=== PATIENT | male | born 1940 | race Caucasian/White ===

== ENCOUNTER → 2020-10-09 | Outpatient (CLI) | payer MEDICARE ==
[2016-04-08 11:20] VITALS: BP 145/66
[~2020-10-09] MED LIST: ALLO300T PO; ASPI81TA50 PO; DICL75TA PO; HYDR12.58 PO; LISI-130 PO; METO-239 PO; PROP225T2 PO; RIVA20TA2 PO; TRAM50TA PO
--- NOTE | 2020-10-09 12:08 | RAD ---
MR#: [id number] Date of Study: 10/09/2020 Ordering Physician: LAILA AVILA, Referring Physician: LAILA AVILA, Tech: Kelly Lanier RDMS, RVT, RTR APPROVED REPORT Patient Location : OUT-PATIENT Indications Lower Extremity Edema : Bilateral Varicose Veins Venous Insufficiency Greater Saphenous Veins (GSV) Significant venous relux noted in the RIGHT GSV at the following levels : Superficial Femoral Junctio n, Proximal Thigh, Mid Thigh, Distal Thigh, Proximal Calf, Mid Calf, Distal Calf Significant venous relux noted in the LEFT GSV at the following levels : Superficial Femoral Junction , Proximal Thigh, Mid Thigh, Distal Thigh, Proximal Calf, Mid Calf Findings Limited grayscale images of the bilateral saphenofemoral junctions did not reveal any obvious evidenc e of thrombus. The right great saphenous vein measures 6 mm with a maximum reflux time of 3 seconds. The left great saphenous vein measures 4.5 mm with a maximum reflux time of 2.3 seconds. The bilat eral lesser saphenous veins did not reveal any evidence of reflux. On the left side the great saphen ous vein appears to rapidly tapered to a small caliber vessel below the knee. Critical Notification Critical Value: No <Conclusion> 1. Positive for reflux in the bilateral greater saphenous veins Signed by : Jerman Carson, Electronically Approved : 10/09/2020 12:08:12
== END ==
LOC: US 08:01
PROVIDERS: ATTEND Internal Medicine Cardiovascular Disease
DX: I87.2 Venous insufficiency (chronic) (peripheral) (principal); R22.43 Localized swelling, mass and lump, lower limb, bilateral
CPT/HCPCS: 93970

== ENCOUNTER → 2020-12-26 | Outpatient (CLI) | payer MEDICARE ==
[2016-04-08 11:20] VITALS: BP 145/66
--- NOTE | 2020-12-26 11:09 | RAD ---
MR#: [id number] Date of Study: 12/26/2020 Ordering Physician: LAILA AVILA, Referring Physician: LAILA AVILA, Tech: Wilbur Palomo MBA, RDMS, RVT, RDCS, RTR APPROVED REPORT Bilateral Lower Extremity Venous Study for DVT Patient Location: OUT-PATIENT Indications S/P B/L GSV VENSEALS Vein Imaging (Right) CFV (R): Compressible SFJ (R): Compressible FEM (R): Compressible POP (R): Compressible DFV (R): Compressible PTV (R): Spontaneous GSV (R): Absent Flow Peroneals (R): Spontaneous Vein Imaging (Left) CFV (L): Compressible SFJ (L): Compressible FEM (L): Compressible POP (L): Compressible DFV (L): Compressible PTV (L): Spontaneous GSV (L): Absent Flow Peroneals (L): Spontaneous Doppler Evaluation (Right) CFV (R): Spontaneous POP (R):Spontaneous Doppler Evaluation (Left) CFV (L):Spontaneous POP (L):Spontaneous Findings The bilateral lower extremity deep veins were evaluated for thrombus with color Doppler, spectral and grayscale images. On the right the grayscale images of the common femoral, superficial femoral and popliteal veins do n ot demonstrate any evidence of thrombus and these veins appear to be compressible. The below-knee vei ns were not well visualized but grossly appear to be compressible. Spectral imaging and color Doppler do not reveal any evidence of obstruction to flow with normal respirophasic variation above the knee . Below the knee there is spontaneous flow noted. On the left, the grayscale images of the common femoral, superficial femoral and popliteal veins do n ot demonstrate any evidence of thrombus and these veins appear to be compressible. The below-knee vei ns again were not well visualized but grossly appear to be compressible. Spectral imaging and color D oppler do not reveal any evidence of obstruction to flow with normal respirophasic variation above th e knee. The below-knee veins demonstrate spontaneous flow. Critical Notification Critical Value: No <Conclusion> 1. Bilateral successful GSV ablations 2. Negative for DVT in the bilateral lower extremities. Signed by : Jerman Carson, Electronically Approved : 12/26/2020 11:08:24
== END ==
LOC: US 10:39
PROVIDERS: ATTEND Internal Medicine Cardiovascular Disease
DX: I82.403 Acute embolism and thrombosis of unspecified deep veins of lower extremity, bilateral (principal); I87.2 Venous insufficiency (chronic) (peripheral)
CPT/HCPCS: 93970

== ENCOUNTER 2021-05-10 09:35 | Observation (INO) | payer MEDICARE ==
[2021-05-10] VITALS (12 sets, daily range): BP systolic 120–166; BP diastolic 61–84
[~2021-05-10] VITALS: Ht 182.9 cm; Wt 88.0 kg
[2021-05-10] MEDS ORDERED: ceFAZolin SODIUM 1 GM in IV NORMAL SALINE 100ML 100 ML IRR ONE (09:45)
[2021-05-10 10:04] LABS: HEMATOCRIT 37.8 % (39.0-53.0); HEMOGLOBIN 12.1 g/dL (13.0-17.5); RED BLOOD COUNT 4.15 x10^6/uL (4.30-5.70); RED CELL DISTRIBUTION WIDTH 14.2 % (11.5-14.5); WHITE BLOOD COUNT 6.7 x10^3/uL (4.0-11.0)
[2021-05-10 10:15] LABS: PROTHROMBIN TIME PATIENT 13.7 SEC (11.7-14.0)
[2021-05-10 10:17] LABS: CALCIUM 8.7 mg/dL (8.5-10.1); CREATININE 1.3 mg/dL (0.7-1.3); GFR 53.1
[2021-05-10] MEDS ORDERED: OMEP40CA7 PO (10:41)
[2021-05-10] MEDS ORDERED: MULT-245 PO (10:41)
[2021-05-10] MEDS ORDERED: LOSA100T14 PO (10:41)
[2021-05-10] MEDS ORDERED: AMLO-187 PO (10:41)
[2021-05-10] MEDS ORDERED: fentaNYL PF VIAL 100 MCG/2 ML VIAL ONE (10:55)
[2021-05-10] MEDS ORDERED: MIDAZOLAM HCL/PF 5 MG/5 ML VIAL. ONE (10:55)
[2021-05-10] MEDS ORDERED: LIDOCAINE 2%/EPI 1:100,000 20 ML VIAL. ONE (11:07)
--- NOTE | 2021-05-10 11:12 | PDOC ---
MODERATE SEDATION ASSESSMENT RISKS/ALTERNATIVES Risks/Alternatives Risks and alternatives of this type of sedation and procedure discussed with: RISK/ALTERNATIVES: Patient H & P ON CHART H & P H & P on chart and reviewed for co-morbid conditions and appropriate labs. H&P ON CHART: Yes STATUS PREG STATUS ASSESSED: N/A MEDS/ALLERGIES REVIEWED Meds/Allergies Reviewed Medications and Allergies including time and route of recently administered narcotics and sedatives. MEDS/ALLERGIES REVIEWED: Yes ASA RATING ASA RATING: II AIRWAY ASSESSMENT Airway Assessment Airway patency, oral function limitations, presence of caps, crowns, dentures, partials, and ability to extend neck assessed. AIRWAY ASSESSMENT: Yes MALLAMPATI SCORE MALLAMPATI SCORE: II PRE-SEDATION ASSESSMENT PRE-SEDATION ASSESSMENT: Yes LAILA AVILA MD May 10, 2021 11:12
[2021-05-10] MEDS ORDERED: methylPREDNISolone SOD SUCC PF 125 MG/2 ML VIAL. ONE (12:03)
[2021-05-10] MEDS ORDERED: diphenhydrAMINE 50 MG/ML VIAL ONE (12:03)
[2021-05-10] MEDS ORDERED: IODIXANOL 320 MG/ML 100 ML VIAL. ONE (12:03)
[2021-05-10] MEDS ORDERED: FAMOTIDINE 20 MG/2 ML VIAL ONE (12:03)
[2021-05-10] MEDS ORDERED: FAMOTIDINE 20 MG/2 ML VIAL IVP ONE (12:15)
[2021-05-10] MEDS ORDERED: fentaNYL PF VIAL 100 MCG/2 ML VIAL IV ONE (12:15)
[2021-05-10] MEDS ORDERED: methylPREDNISolone SOD SUCC PF 125 MG/2 ML VIAL. IV ONE (12:15)
[2021-05-10] MEDS ORDERED: LIDOCAINE 2%/EPI 1:100,000 20 ML VIAL. IJ ONE (12:15)
[2021-05-10] MEDS ORDERED: diphenhydrAMINE 50 MG/ML VIAL IVP ONE (12:15)
[2021-05-10] MEDS ORDERED: IODIXANOL 320 MG/ML 100 ML VIAL. IART ONE (12:15)
[2021-05-10] MEDS: MIDAZOLAM HCL/PF 5 MG/5 ML VIAL. IV ONE (12:15)
--- NOTE | 2021-05-10 13:03 | EKG ---
[facility] [address] [place] [address] Test Date: 2021-05-10 Test Time: 10:04:09 Pat Name: POLLY OATES Department: Room: [facility] Gender: M Body Mechanic: VINAYAK : 1940 Requested By: LAILA SALAS Order Number: [id number] Reading MD: Laila Salas Measurements Intervals [place] Rate: 63 P: 54 GA: 346 QRS: -6 QRSD: 92 T: 36 QT: 408 QTc: 421 Interpretive Statements SINUS RHYTHM PROLONGED GA INTERVAL LEFTWARD AXIS QRS(T) CONTOUR ABNORMALITY CONSIDER ANTEROSEPTAL MYOCARDIAL DAMAGE ABNORMAL ECG Electronically Signed On 05-29-2021 8:26:19 FUNCTIONAL MANAGER by Laila Salas
--- NOTE | 2021-05-10 13:10 | NUR ---
Patient arrived to room 670 via bed post PPM placement & loop recorder removed at 1310. Patient A&O. VSS. Two dressings on L chest are CDI. at bedside. The patient, POLLY OATES, 81 y/o, M admitted by LAILA AVILA MD, was given written information regarding hospital policies, unit procedures and contact persons. VÍCTOR Murguia helped with admission. Valuables were checked and noted. Will continue to monitor.
--- NOTE | 2021-05-10 13:39 | CARD ---
MR#: [id number] Date of Study: 05/10/2021 Ordering Physician: BROCK AVILA, Referring Physician: BROCK AVILA, Tech: APPROVED REPORT PROCEDURES 1. Implantation of Biotronik dual-chamber permanent pacemaker 2. Explantation of previously placed loop recorder MODERATE SEDATION TIME: 86 MINUTES FLUORO TIME: 7.5 MIN DOSE: 20.7 GYCM2 CONTRAST: 25CC VISI INDICATIONS Sick sinus syndrome with severe symptomatic bradycardia IV conscious sedation was used throughout procedure with appropriate monitoring and was performed in the presence of a registered nurse who was an independent trained observer other than the physician p erforming the procedure. During this case, Fluoroscopy and low osmolar contrast were used for imaging. Specimen(s) Removed: No Estimated Blood loss: 15 cc's. 5 cc of 2% lidocaine was infiltrated into the skin and subcutaneous tissues over the previously place d loop recorder for local anesthesia. An incision was made and using blunt dissection and cautery, t he pocket was opened and the previously placed loop recorder removed. The incision was closed in 2 l jernigan. Subsequently, 30 cc of 2% lidocaine was infiltrated into the skin and subcutaneous tissues of left in fraclavicular fossa for local anesthesia. An incision was made and using blunt dissection and cauter y, a pocket was created. Initial attempts to obtain venous access under fluoroscopic guidance were u nsuccessful. Contrast injections were performed through peripheral IV to perform left subclavian loraine ogram. Venous access was then obtained successfully and 8 and 6 [place] sheaths inserted. A Biotronik bipolar active fixation right ventricular lead model Solia, serial #[id number] was advanc ed under fluoroscopic guidance and the tip was positioned in the right ventricular apex. Following t his, a Biotronik bipolar active fixation right atrial lead model Solia, serial #[id number] was positi oned in the right atrial appendage under fluoroscopic guidance. The leads were secured into place an d were attached to a Biotronik dual-chamber permanent pacemaker generator [place] [address], serial #[id number]. This was placed in the pocket that was subsequently closed in 3 layers. Hemostasis was secure d. The right ventricular lead showed a sensing amplitude of 9.3 mV, impedance of 663 ohms and a threshol d of 0.4 V. The right atrial lead showed a sensing amplitude of 1.3 mV, impedance of 429 ohms and a threshold of 1.1 V. Patient tolerated the procedure well. There were no immediate complications CONCLUSION Successful implantation of Biotronik dual-chamber permanent pacemaker for sick sinus syndrome with se saqib symptomatic bradycardia. The previously placed Biotronik biomonitor loop recorder was explanted successfully. Signed by : Brock Avila, Electronically Approved : 05/10/2021 13:39:21
[2021-05-10] MEDS ORDERED: ceFAZolin SODIUM IV Push 1 GM VIAL. IVP ONE (13:45)
--- NOTE | 2021-05-10 15:07 | RAD ---
Single view of the chest. 05/10/2021 1:37 PM Indication: Reason: Post pacemaker / Spl. Instructions: / History: Comparison study: None Findings: There is a dual-lead pacemaking from a left subclavian approach. No pneumothorax or pleural effusion is seen. The heart is enlarged. No acute osseous changes are seen. Severe degenerative hanson ges of bilateral shoulders noted. IMPRESSION: Dual-lead pacemaking device from a left subclavian approach. No acute cardiopulmonary pro cess Electronically signed by: Kobe Talley MD (05/10/2021 3:04 PM) [id number]
[2021-05-11 03:35] VITALS: BP 127/60
[2021-05-11 07:53] VITALS: BP 163/96
[2021-05-11 10:49] VITALS: BP 169/86
--- NOTE | 2021-05-11 11:35 | RAD ---
Exam performed: 2 views of the chest. Indication: Reason: 1 day post pacemaker implantation / Spl. Instructions: / History: Date of Service: 05/11/2021 7:33 AM. Comparison : None available Findings: PA and lateral radiographs of the chest reveal a normal cardiomediastinal contour. There is a bipolar pacemaker in place. There are patchy parenchymal opacities seen in the retrocardiac region on latera l view, not well-seen on the AP projection. There is no pleural effusion or pneumothorax. Impression: Suspected retrocardiac infiltrates. Electronically signed by: Esperanza Montilla MD (05/11/2021 11:33 AM) [facility]
--- NOTE | 2021-05-11 12:42 | PDOC3 ---
Discharge Summary Visit Information Date of Admission: May 10, 2021 Date of Discharge: May 11, 2021 Admitting Diagnosis: Sick sinus syndrome Final Diagnosis Sick sinus syndrome PAF HTN Venous insufficiency Brief Hospital Course Allergies Allergies Coded Allergies Type Severity Reaction Last Updated Verified hydrocodone Allergy Intermediate Rash 04/07/16 Yes iodine Allergy Unknown Rash 05/10/21 Yes povidone-iodine Allergy Unknown Rash 05/10/21 Yes Vital Signs Vital Signs Date Time Temp Pulse Resp B/P (MAP) Pulse Ox O2 Delivery O2 Flow Rate FiO2 05/11/21 10:49 97.9 72 20 169/86 (113) 97 Room Air 97.9 05/10/21 12:43 2.0 Lab Results Laboratory Tests Test 05/10/21 09:50 White Blood Count 6.7 x10^3/uL (4.0-11.0) Red Blood Count 4.15 x10^6/uL (4.30-5.70) Hemoglobin 12.1 g/dL (13.0-17.5) Hematocrit 37.8 % (39.0-53.0) Mean Corpuscular Volume 91 fL (79-100) Mean Corpuscular Hemoglobin 29 pg (25-35) Mean Corpuscular Hemoglobin Concent 32 g/dL (31-37) Red Cell Distribution Width 14.2 % (11.5-14.5) Platelet Count 211 x10^3/uL (140-400) Prothrombin Time 13.7 SEC (11.7-14.0) Prothromb Time International Ratio 1.1 (0.8-1.1) Sodium Level 141 mmol/L (136-145) Potassium Level 4.0 mmol/L (3.5-5.1) Chloride Level 106 mmol/L (98-107) Carbon Dioxide Level 25 mmol/L (21-32) Anion Gap 10 (6-14) Blood Urea Nitrogen 18 mg/dL (8-26) Creatinine 1.3 mg/dL (0.7-1.3) Estimated GFR (Cockcroft-Gault) 53.1 Glucose Level 99 mg/dL (70-99) Calcium Level 8.7 mg/dL (8.5-10.1) Brief Hospital Course Mr. Hauser is a 81 old male with PAF was noted to have sick sinus syndrome with severe symptomatic bradycardia on loop recorder interrogations and underwent successful Biotronik dual chamber permanent pacemaker implantation. He was hemodynamically stable, incision looked good, CXR did not show pneumothorax and device check showed normal function prior to DC. He will follow up with our office for wound check in 2 weeks. Discharge Information Scheduled Amlodipine Besylate (Amlodipine Besylate) 10 Mg Tablet, 10 MG PO DAILY for antihypertensive, (Reported) Entered as Reported by: SHELLEY LOO on 05/10/211040 Last Taken: Unknown Dose on 05/10/21 0800 Last Action: New Order on 05/10/211040 by SHELLEY LOO Aspirin (Aspir-Low) 81 Mg Tablet.dr, 1 TAB PO DAILY, #30 Ref 3 (Reported) Entered as Reported by: LORETTA COOLEY on 06/19/141334 Last Taken: Unknown Dose on 05/09/21 Last Action: Last Taken Edited on 05/10/211040 by SHELLEY LOO Diclofenac Sodium (Diclofenac Sodium) 75 Mg Tablet., 1 TAB PO DAILY, #60 Ref 1 (Reported) Entered as Reported by: LORETTA COOLEY on 06/19/141334 Last Taken: Unknown Dose on 05/09/21 Last Action: Last Taken Edited on 05/10/211040 by SHELLEY LOO Losartan Potassium (Losartan Potassium) 100 Mg Tablet, 100 MG PO DAILY for HYPERTENSION, (Reported) Entered as Reported by: SHELLEY LOO on 05/10/211040 Last Taken: Unknown Dose on 05/10/21 0800 Last Action: New Order on 05/10/211040 by SHELLEY LOO Metoprolol Succinate (Metoprolol Succinate ( Xl )) 25 Mg Tab.er.24h, 25 MG PO DAILY for FOR HYPERTENSION, #30 Ref 0 (Reported) Entered as Reported by: RACHEL URIAS on 08/02/15 1523 Last Taken: 50mg on 05/10/21 0800 Last Action: Last Taken Edited on 05/10/211040 by SHELLEY LOO Multivitamin (Multi Vitamin Daily) 1 Each Tablet, 1 TAB PO DAILY for supplement for 30 Days, #30 Ref 0 (Reported) Entered as Reported by: SHELLEY LOO on 05/10/211040 Last Taken: Unknown Dose on 05/09/21 Last Action: New Order on 05/10/211040 by SHELLEY LOO Omeprazole (Omeprazole) 40 Mg Capsule., 1 CAP PO DAILY for GERD, #30 Ref 3 (Reported) Entered as Reported by: SHELLEY LOO on 05/10/21 104 Last Taken: Unknown Dose on 05/09/21 Last Action: New Order on 05/10/21 104 by SHELLEY LOO Miscellaneous Medications Rivaroxaban (Xarelto) 20 Mg Tablet, 20 MG PO, (Reported) Entered as Reported by: RACHEL URIAS on 08/02/15 1523 Last Taken: Unknown Dose on 05/07/21 Last Action: Last Taken Edited on 05/10/21 104 by SHELLEY LOO Justicifation of Admission Dx: Justifications for Admission: Justification of Admission Dx: Yes LAILA AVILA MD May 11, 2021 12:42
--- NOTE | 2021-05-11 13:36 | NUR ---
DISCHARGE DISCHARGE INSTRUCTIONS INCLUDING POST PPM PLACEMENT INFORMATION COVERED WITH FAMILY ET PATIENT. HOME MEDICATIONS REVIEWED WELL. ALL QUESTIONS ANSWERED TO THEIR SATISFACTION. CARD FOR CARDIOLOGY OFFICE GIVEN TO PATIENT FOR MAKING UP 2 WEEK FOLLOW UP APPOINTMENT. PIV'S AND TELE DISCONTINUED AT THIS TIME. PT TO WHEEL OUT WITH DAUGHTER AND FOR DISCHARGE PER PRIVATE VEHICLE.
== END 2021-05-11 13:45 | disposition home or self-care (01) ==
LOC: CCL 09:35 → INTOOBSV 10:00 → 6 SOUTH 10:00
PROVIDERS: ADMIT Internal Medicine Cardiovascular Disease; ATTEND Internal Medicine Cardiovascular Disease
DX: I49.5 Sick sinus syndrome (principal); I42.9 Cardiomyopathy, unspecified; I10 Essential (primary) hypertension; T82.897A Other specified complication of cardiac prosthetic devices, implants and grafts, initial encounter; I48.0 Paroxysmal atrial fibrillation; I87.2 Venous insufficiency (chronic) (peripheral); I49.9 Cardiac arrhythmia, unspecified; K21.9 Gastro-esophageal reflux disease without esophagitis; Z79.01 Long term (current) use of anticoagulants; Z79.82 Long term (current) use of aspirin
CPT/HCPCS: 33208; 33286; 36415; 71045; 71046; 80048; 85027; 85610; 93005; 96365; 99152; 99153; C1785; C1894; G0378; G0379; J0690; J1200; J1644; J2250; J2930; J3010; J3490; Q9967